=== PATIENT | female | born 1960 | race Caucasian/White ===

== ENCOUNTER 2016-12-21 18:01 | Emergency (ER) | payer SELFPAY ==
[~2016-12-21] VITALS: Ht 167.6 cm; Wt 87.0 kg
[~2016-12-21 18:01] MED LIST: METO25TA6 PO
[2016-12-21 18:02] VITALS: BP 141/93; PULSE 87; RESP 15; TEMP 98.1; O2SAT 99
[2016-12-21] MEDS ORDERED: LEVO50TA4 PO (18:16)
[2016-12-21] MEDS ORDERED: METO25TA3 PO (18:16)
[2016-12-21] MEDS ORDERED: DOXY100C PO (18:18)
--- NOTE | 2016-12-21 18:21 | PD ---
HPI Chief Complaint: Skin Problem Time Seen by Provider: 18:10 Travel History International Travel<30 days: No Contact w/Intl Traveler<30days: No Traveled to known affect area: No History of Present Illness HPI 56-year-old female presents for evaluation of pain and redness in the dorsal aspect of the left hand and wrist. She first noticed it yesterday morning. The pain is an aching pain that is constant and worse with palpation of the hand. She has a linear scratch on the dorsal surface of the left hand which she believes is from her cat. No fevers Or chills. No drainage. She denies any trauma to the hand. Last tetanus vaccination unknown. No other complaints. PFSH Past Medical History Diminished Hearing: No Hypertension: Yes Thyroid Disease: Yes (HYPO) Tetanus Vaccination: > 5 Years Influenza Vaccination: No ?: Not Past Surgical History Genitourinary Surgery: Yes (BLADDER MESH) Hysterectomy: Yes Joint Replacement: Yes (R KNEE MENISCUS REPAIR) Social History Alcohol Use: No Tobacco Use: No Substance Use: No Allergies-Medications (Allergen,Severity, Reaction): Coded Allergies: Penicillin (Verified Allergy, Intermediate, RASH, 12/21/16) Reported Meds & Prescriptions Reported Meds & Active Scripts Active Reported Levothyroxine (Levothyroxine Sodium) 50 Mcg Tab 50 Mcg PO DAILY Metoprolol Tartrate 25 Mg Tab 25 Mg PO HS Review of Systems General / Constitutional: No: Fever, Chills Skin: Positive Other (linear abrasion, pain, redness) Physical Exam Narrative GENERAL: Well-developed well-nourished female in no acute distress SKIN: Warm and dry. There is a superficial linear abrasion at the dorsal surface of left hand with some mild surrounding erythema. There is no proximal streaking or axillary lymphadenopathy. No induration or soft tissue swelling. CARDIOVASCULAR: Regular rate and rhythm. No murmur appreciated. RESPIRATORY: No accessory muscle use. Clear to auscultation. Breath sounds equal bilaterally. MUSCULOSKELETAL: Skin as noted above with no obvious bony deformity. The patient has full range of motion of the left hand and wrist. Data Data Last Documented VS Vital Signs Date Time Temp Pulse Resp B/P Pulse Ox O2 Delivery O2 Flow Rate FiO2 12/21/16 18:02 98.1 87 15 141/93 99 Orders Tetanus/Diphtheria Tox Adult (Tetanus/Di (12/21/16 18:30) Doxycycline (Vibramycin) (12/21/16 18:30) [facility] Medical Decision Making Medical Screen Exam Complete: Yes Emergency Medical Condition: Yes Medical Record Reviewed: Yes Differential Diagnosis Cellulitis, abscess, erysipelas, contusion Narrative Course Physical examination reveals mild cytolytic changes dorsal surface of the left hand along with a superficial linear abrasion likely from the patient Scratching her. Tetanus status updated. The patient is allergic to penicillin. She will be discharged with doxycycline which would cover for pasteurella as well as most staphylococcal strains. Discussed signs and symptoms of more returning to the emergency room. Diagnosis Primary Impression: Cellulitis of left hand Additional Instructions: Warm compresses several times a day 10-15 minutes at a time. Take Tylenol or Motrin for discomfort. Take antibiotics as prescribed. Return for any evidence of worsening infection such as increasing redness, red streaks up the arm, fevers. Med/Other Pt SpecificInfo: Prescription(s) given Scripts Doxycycline Hyclate 100 Mg Atn102 Mg PO BID #20 CAP Ref 0 Prov:Jagjit Bell MD 12/21/16 Disposition: 01 DISCHARGE HOME Condition: Stable Mendoza Champion Dec 21, 2016 18:21
[2016-12-21] MEDS ORDERED: TETANUS/DIPHTHERIA TOXOID ADULT 0.5 ML VIAL IM ONE (18:30)
[2016-12-21] MEDS ORDERED: DOXYCYCLINE HYCLATE 100 MG TAB PO ONE (18:30)
[2016-12-21] MEDS ORDERED: DOXYCYCLINE HYCLATE 100 MG CAP PO ONE (18:30)
== END 2016-12-21 18:30 | disposition home or self-care (01) ==
LOC: PHEFT 18:01
DX: L03.114 Cellulitis of left upper limb (principal); Z23 Encounter for immunization; I10 Essential (primary) hypertension; E07.9 Disorder of thyroid, unspecified; Z88.0 Allergy status to penicillin; Z79.899 Other long term (current) drug therapy
CPT/HCPCS: 90471; 90714

== ENCOUNTER 2018-08-04 12:42 | Observation (INO) ==
[2018-08-04] MEDS ORDERED: Sodium Chlor 0.9% Inj 500 ML IV.SIG SCH (13:00)
--- NOTE | 2018-08-04 13:14 | XR ---
EXAM DATE: 08/04/2018 1:10 PM EDT AGE/SEX: 58 years / Female INDICATIONS: . Cough, chest pressure. & heart palpations. CLINICAL DATA: This is the patient's initial encounter. Patient reports that signs and symptoms have been present for 1 month and indicates a pain score of 0/10. MEDICAL/SURGICAL HISTORY: Hypothyroidism. Tonsillectomy. COMPARISON: No prior exams available for comparison. FINDINGS: PA and lateral views of the chest demonstrate the lungs to be symmetrically aerated without evidence of mass, infiltrate or effusion. The cardiomediastinal contours are unremarkable. Osseous structures are intact. CONCLUSION: No acute cardiopulmonary disease. Electronically signed by: Zechariah Davis MD 08/04/2018 1:13 PM EDT
--- NOTE | 2018-08-04 13:15 | ED ---
HPI General Chief Complaint: Chest Pain Stated Complaint: COUGH/CHEST CONGESTION Time Seen by Provider: 08/04/18 12:52 Source: patient Mode of arrival: ambulatory Limitations: no limitations History of Present Illness MD complaint: Reports chest pain STEMI Alert: No Onset (ago): month(s) (1) Duration: intermittent Onset: during rest Pain location: Reports substernal Severity: mild Severity scale (1-10): 4 Quality: Reports tightness Pain radiation: Reports none Relieving factors: nothing Exacerbating factors: nothing Associated symptoms: Reports cough (HAS HAD NONPROD COUGH X 1 MONTH, ) Treatments prior to arrival chest pain: Reports none Related Data On Oral Contraceptives: No Home Medications Medication Instructions Recorded Confirmed No Known Home Medications 08/04/18 08/04/18 Allergies Allergy/AdvReac Type Severity Reaction Status Date / Time nitrofurantoin Allergy Intermediate Rash Verified 08/04/18 12:49 [From Macrobid] penicillin G Allergy Intermediate RASH Verified 08/04/18 12:46 phenazopyridine Allergy Intermediate Rash Verified 08/04/18 12:49 [From Pyridium] Review of Systems ROS: all other systems reviewed are negative [facility] Medical History Medical History Bladder prolapse (Acute) H/O: hysterectomy (Acute) Hypothyroid (Acute) Surgical History Surgical History H/O right knee surgery (Acute) History of tonsillectomy (Acute) Family History Family History Father Cardiovascular disease Social History Social History Substance History: No History of Abuse Second Hand Smoke Exposure: No Smoking Status: Never smoker How Often Do You Have a Drink Containing Alcohol: Monthly or less Recent Travel in [facility] within the Last 8 Weeks: No Recent Out of Country Travel within the Last 8 Weeks: No Immunization History Tetanus Immunization: Unsure Exam Narrative Exam Narrative: GENERAL: female in no acute distress SKIN: Warm and dry. HEAD: Atraumatic. Normocephalic. EYES: Pupils equal and round. No scleral icterus. No injection or drainage. ENT: No nasal bleeding or discharge. Mucous membranes pink and moist. NECK: Trachea midline. No JVD. CARDIOVASCULAR: Tachycardic rate but regular rhythm. no rubs or gallops RESPIRATORY: No accessory muscle use. Slight bibasilar rhonchi/crackles on auscultation . Excellent tidal volume bilaterally GASTROINTESTINAL: Abdomen soft, non-tender, nondistended. No rebound or guarding MUSCULOSKELETAL: Extremities without clubbing, cyanosis, or edema. No obvious deformities. NEUROLOGICAL: Awake and alert. No obvious cranial nerve deficits. Motor grossly within normal limits. Five out of 5 muscle strength in the arms and legs. Normal speech. PSYCHIATRIC: Appropriate mood and affect; insight and judgment normal. Course Initial Documented Vital Signs Temperature 98.2 F 08/04/18 12:46 Pulse Rate 112 H 08/04/18 12:46 Respiratory Rate 16 08/04/18 12:46 Blood Pressure 200/110 H 08/04/18 12:46 Pulse Oximetry 96 08/04/18 12:46 Last Documented Vital Signs Temperature 96.6 F L 08/05/18 08:00 Pulse Rate 81 08/05/18 08:00 Respiratory Rate 20 08/05/18 08:00 Blood Pressure 136/82 08/05/18 08:00 Pulse Oximetry 95 08/05/18 08:00 Clinical Decision Support HEART Score Questions History: Moderately suspicious EKG: Non-specific repolarization disturbance Age: 45-64 years Risk Factors: 1-2 Risk Factors (patient has NO PCP and therefore NO HISTORY) Initial Troponin: Normal Limit Heart Score HEART Score: 4 Medical Decision Making MDM Narrative Medical Screen Exam Complete: Yes Emergency Medical Condition: Yes Differential Diagnosis Differential Diagnosis: PULM EDEMA V PULM EMBOLUS V PNA V ATYPICAL MA Medical Records Medical records reviewed: Yes I reviewed the patient's medical records. Lab Data Result diagrams: 08/04/18 13:20 08/04/18 13:20 Lab Results 08/04/18 08/04/18 08/04/18 Range/Units 13:20 13:20 13:20 CBC w Diff Auto diff final WBC 7.5 (4.0-11.0) th/mm3 RBC 4.47 (4.00-5.30) mil/mm3 Hgb 13.9 (11.6-15.3) gm/dL Hct 40.9 (35.0-46.0) % MCV 91.5 (80.0-100.0) fL MCH 31.2 (27.0-34.0) pg MCHC 34.1 (32.0-36.0) % RDW 14.2 (11.6-17.2) % Plt Count 275 (150-450) th/mm3 MPV 9.9 (7.0-11.0) fL Neut % (Auto) 56.6 (16.0-70.0) % Lymph % (Auto) 24.7 (9.0-44.0) % [place] % (Auto) 7.7 (0.0-8.0) % Eos % (Auto) 9.4 H (0.0-4.0) % Baso % (Auto) 1.6 (0.0-2.0) % Neut # (Auto) 4.2 (1.8-7.7) th/mm3 Lymph # (Auto) 1.9 (1.0-4.8) th/mm3 [place] # (Auto) 0.6 (0.0-0.9) th/mm3 Eos # (Auto) 0.7 H (0.0-0.4) th/mm3 Baso # (Auto) 0.1 (0.0-0.2) th/mm3 WBC Differential . Differential Comment . D-Dimer Quant (PE/DVT) (0.00-0.50) mg/L FEU Sodium 141 (136-145) meq/L Potassium 3.3 L (3.5-5.1) meq/L Chloride 106 (98-107) meq/L Carbon Dioxide 26.8 (21.0-32.0) meq/L Anion Gap 8 (5-15) meq/L BUN 10 (7-18) mg/dL Creatinine 0.81 (0.50-1.00) mg/dL Estimated GFR 73 L (>89) mL/min Random Glucose 131 H (74-106) mg/dL Calcium 8.6 (8.5-10.1) mg/dL Total Bilirubin 0.4 (0.2-1.0) mg/dL AST 18 (15-37) U/L ALT 23 (10-53) U/L Alkaline Phosphatase 67 (45-117) U/L Total Creatine Kinase 68 (26-192) U/L Troponin I Less than 0.02 L (0.02-0.05) ng/mL B-Natriuretic Peptide (0-100) pg/mL Total Protein 7.9 (6.4-8.2) g/dL Albumin 3.8 (3.4-5.0) g/dL Triglycerides (42-150) mg/dL Cholesterol (120-200) mg/dL LDL Cholesterol, Calc (0-99) mg/dL HDL Cholesterol (40.0-60.0) mg/dL Cholesterol/HDL Ratio Ratio TSH 2.570 (0.358-3.740) uIU/mL 08/04/18 08/04/18 08/04/18 Range/Units 13:20 13:20 17:04 CBC w Diff WBC (4.0-11.0) th/mm3 RBC (4.00-5.30) mil/mm3 Hgb (11.6-15.3) gm/dL Hct (35.0-46.0) % MCV (80.0-100.0) fL MCH (27.0-34.0) pg MCHC (32.0-36.0) % RDW (11.6-17.2) % Plt Count (150-450) th/mm3 MPV (7.0-11.0) fL Neut % (Auto) (16.0-70.0) % Lymph % (Auto) (9.0-44.0) % [place] % (Auto) (0.0-8.0) % Eos % (Auto) (0.0-4.0) % Baso % (Auto) (0.0-2.0) % Neut # (Auto) (1.8-7.7) th/mm3 Lymph # (Auto) (1.0-4.8) th/mm3 [place] # (Auto) (0.0-0.9) th/mm3 Eos # (Auto) (0.0-0.4) th/mm3 Baso # (Auto) (0.0-0.2) th/mm3 WBC Differential Differential Comment D-Dimer Quant (PE/DVT) 0.48 (0.00-0.50) mg/L FEU Sodium (136-145) meq/L Potassium (3.5-5.1) meq/L Chloride (98-107) meq/L Carbon Dioxide (21.0-32.0) meq/L Anion Gap (5-15) meq/L BUN (7-18) mg/dL Creatinine (0.50-1.00) mg/dL Estimated GFR (>89) mL/min Random Glucose (74-106) mg/dL Calcium (8.5-10.1) mg/dL Total Bilirubin (0.2-1.0) mg/dL AST (15-37) U/L ALT (10-53) U/L Alkaline Phosphatase (45-117) U/L Total Creatine Kinase 55 (26-192) U/L Troponin I Less than 0.02 L (0.02-0.05) ng/mL B-Natriuretic Peptide 12 (0-100) pg/mL Total Protein (6.4-8.2) g/dL Albumin (3.4-5.0) g/dL Triglycerides (42-150) mg/dL Cholesterol (120-200) mg/dL LDL Cholesterol, Calc (0-99) mg/dL HDL Cholesterol (40.0-60.0) mg/dL Cholesterol/HDL Ratio Ratio TSH (0.358-3.740) uIU/mL 08/04/18 08/04/18 Range/Units 17:04 20:00 CBC w Diff WBC (4.0-11.0) th/mm3 RBC (4.00-5.30) mil/mm3 Hgb (11.6-15.3) gm/dL Hct (35.0-46.0) % MCV (80.0-100.0) fL MCH (27.0-34.0) pg MCHC (32.0-36.0) % RDW (11.6-17.2) % Plt Count (150-450) th/mm3 MPV (7.0-11.0) fL Neut % (Auto) (16.0-70.0) % Lymph % (Auto) (9.0-44.0) % [place] % (Auto) (0.0-8.0) % Eos % (Auto) (0.0-4.0) % Baso % (Auto) (0.0-2.0) % Neut # (Auto) (1.8-7.7) th/mm3 Lymph # (Auto) (1.0-4.8) th/mm3 [place] # (Auto) (0.0-0.9) th/mm3 Eos # (Auto) (0.0-0.4) th/mm3 Baso # (Auto) (0.0-0.2) th/mm3 WBC Differential Differential Comment D-Dimer Quant (PE/DVT) (0.00-0.50) mg/L FEU Sodium (136-145) meq/L Potassium (3.5-5.1) meq/L Chloride (98-107) meq/L Carbon Dioxide (21.0-32.0) meq/L Anion Gap (5-15) meq/L BUN (7-18) mg/dL Creatinine (0.50-1.00) mg/dL Estimated GFR (>89) mL/min Random Glucose (74-106) mg/dL Calcium (8.5-10.1) mg/dL Total Bilirubin (0.2-1.0) mg/dL AST (15-37) U/L ALT (10-53) U/L Alkaline Phosphatase (45-117) U/L Total Creatine Kinase 50 (26-192) U/L Troponin I Less than 0.02 L (0.02-0.05) ng/mL B-Natriuretic Peptide (0-100) pg/mL Total Protein (6.4-8.2) g/dL Albumin (3.4-5.0) g/dL Triglycerides 142 (42-150) mg/dL Cholesterol 236 H (120-200) mg/dL LDL Cholesterol, Calc 152 H (0-99) mg/dL HDL Cholesterol 55.3 (40.0-60.0) mg/dL Cholesterol/HDL Ratio 4.26 Ratio TSH 2.190 (0.358-3.740) uIU/mL Imaging Data Radiologist's impression: Chest X-Ray 08/04/18 12:53 CONCLUSION: No acute cardiopulmonary disease. ECG Data EKG Prior to Arrival: No Attestation: I personally reviewed and interpreted this ECG as follows: Prior ECG tracings: not available for review Interpretation: Normal sinus rhythm, 91 bpm, normal interval, minimal ST depression and T wave inversion on 2 3 aVF V4 through V6 without accompanying ST elevations on contralateral leads. Discharge Plan Discharge Disposition Patient Disposition: 30 Still Patient Discharge Condition Condition: Stable Discharge Details Diagnosis: Chest pain Physicians Team ED Provider: Logan Bautista Primary Care Provider: Primary Care Nan Moreno Attending Provider: Raúl De Leon Discharge Interventions Interventions: ED Discharge Assessment Last Done: 08/04/18 16:08 Status ED Status: Left Department Discharge Information Discharge Date/Time: 08/04/18 16:09
[2018-08-04] MEDS: Metoprolol Inj 5 MG/5 ML Vial IV.PUSH SCH ×3 (13:26→14:48)
[2018-08-04 13:34] LABS: Baso # (Auto) 0.1 th/mm3 (0.0-0.2); Baso % (Auto) 1.6 % (0.0-2.0); Eos # (Auto) 0.7 th/mm3 (0.0-0.4); Eos % (Auto) 9.4 % (0.0-4.0); Hematocrit 40.9 % (35.0-46.0); Hemoglobin 13.9 gm/dL (11.6-15.3); Lymph # (Auto) 1.9 th/mm3 (1.0-4.8); Lymph % (Auto) 24.7 % (9.0-44.0); Mean Corpuscular HGB Conc 34.1 % (32.0-36.0); Mean Corpuscular Hemoglobin 31.2 pg (27.0-34.0); Mean Corpuscular Volume 91.5 fL (80.0-100.0); Mean Platelet Volume 9.9 fL (7.0-11.0); Mono # (Auto) 0.6 th/mm3 (0.0-0.9); Mono % (Auto) 7.7 % (0.0-8.0); Neut # (Auto) 4.2 th/mm3 (1.8-7.7); Neut % (Auto) 56.6 % (16.0-70.0); Platelet Count 275 th/mm3 (150-450); Red Blood Count 4.47 mil/mm3 (4.00-5.30); Red Cell Distribution Width 14.2 % (11.6-17.2); White Blood Count 7.5 th/mm3 (4.0-11.0)
[2018-08-04 13:42] LABS: Chloride 106 meq/L (98-107); Potassium 3.3 meq/L (3.5-5.1); Sodium 141 meq/L (136-145)
[2018-08-04 13:45] LABS: Calcium 8.6 mg/dL (8.5-10.1)
[2018-08-04 13:46] LABS: Albumin 3.8 g/dL (3.4-5.0); Anion Gap 8 meq/L (5-15); Blood Urea Nitrogen 10 mg/dL (7-18); Carbon Dioxide 26.8 meq/L (21.0-32.0); Glucose,Random 131 mg/dL (74-106)
[2018-08-04 13:49] LABS: Alanine Aminotransferase 23 U/L (10-53); Aspartate Aminotransferase 18 U/L (15-37); Glomerular Filtration Rate 73 mL/min (>89)
[2018-08-04 13:50] LABS: Total Protein 7.9 g/dL (6.4-8.2)
[2018-08-04 13:52] LABS: Alkaline Phosphatase 67 U/L (45-117)
--- NOTE | 2018-08-04 15:31 | P.HP ---
History of Present Illness Primary Care Physician: No Primary Care Physician Chief Complaint: Chest pain History of Present Illness: This is a 58-year-old female patient with no known medical history who presented to the ED with complaints of chest pain and cough. Patient states that over the past month she has had an intermittent cough that goes from being productive to nonproductive. She states that she subsequently has had some chest pressure associated with her cough, she states the pressure is midsternal and radiates throughout the right and left side of her chest, is worse with coughing and deep breathing, does admit to associated shortness of breath with the pain. She denies any associated nausea, vomiting or sweating. She also admits to some heart palpitations, that intermittently come and go during the day, she states that it feels like she is skipping a beat. She denies ever having this type of sensation before. 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 She denies any recent fever, chills, headache, or dysuria. She does admit to a stress test in 2008, at that time she did have aspiration pneumonia secondary to tonsillectomy, stress test was negative at that time. 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 She also states that she has history of hypothyroidism, states she stopped taking her Synthroid months ago and has been doing herbal remedies. Patient does have a family history on her father's side of cardiovascular disease. She denies taking any home medications. Upon presentation chest pain has resolved. Chest x-ray is unremarkable. Initial troponins flat. EKG with no significant ST changes. - Diagnosis (1) Chest pain Review of Systems All other systems reviewed negative except as stated in HPI PMFSH - History History Provided By: Patient - Medical History Medical History: Medical History (Last Updated 08/04/18 @ 16:46 by Mariely Sutherland) Bladder prolapse H/O: hysterectomy Hypothyroid - Surgical History Surgical History: Surgical History (Last Updated 08/04/18 @ 16:46 by Mariely Sutherland) H/O right knee surgery History of tonsillectomy - Family History Family History: Family History (Last Updated 08/04/18 @ 16:46 by Mariely Sutherland) Father Cardiovascular disease - Social History I have reviewed the patient's Social History: Yes - Tobacco History Second Hand Smoke Exposure: No Smoking Status: Never smoker - Alcohol History How Often Do You Have a Drink Containing Alcohol: Never - Substance Use History Substance History: No History of Abuse - Travel History Recent Travel in the [place] Within the Last 8 Weeks: No Recent Travel Out of the Country Within the Last 8 Weeks: No - Immunization History Tetanus Immunization: Unsure Medications and Allergies Active Medications: Active Medications Sodium Chloride (Ns Inj) 500 mls @ 0 mls/hr IV.SIG BOLUS EMILY Last Infusion: 08/04/18 14:25 Dose: Infused Nitroglycerin (Nitrostat Sl) 0.4 mg SL Q5M PRN PRN Reason: CHEST PAIN Ondansetron HCl (Zofran Inj) 4 mg IV.PUSH Q6H PRN PRN Reason: NAUSEA Sodium Chloride (Ns Flush) 2 ml IV.FLUSH UNSCH PRN PRN Reason: FLUSH AFTER USING IV ACCESS Last Admin: 08/04/18 13:26 Dose: 2 ml Sodium Chloride (Ns Flush) 2 ml IV.FLUSH BID EMILY Sodium Chloride (Ns Flush) 2 ml IV.FLUSH PRN PRN PRN Reason: FLUSH AFTER USING IV ACCESS Allergies Allergy/AdvReac Type Severity Reaction Status Date / Time nitrofurantoin Allergy Intermediate Rash Verified 08/04/18 12:49 [From Macrobid] penicillin G Allergy Intermediate RASH Verified 08/04/18 12:46 phenazopyridine Allergy Intermediate Rash Verified 08/04/18 12:49 [From Pyridium] Home Medications Medication Instructions Recorded Confirmed Type No Known Home Medications 08/04/18 08/04/18 History Exam Vital signs: Vital Signs 08/04/18 12:46 08/04/18 12:48 08/04/18 13:04 Temperature 98.2 F Pulse Rate 112 H 115 H 103 H Respiratory Rate 16 18 16 Blood Pressure 200/110 H 170/104 H 161/89 H Pulse Oximetry 96 95 95 08/04/18 13:35 08/04/18 14:08 Temperature Pulse Rate 89 77 Respiratory Rate 18 16 Blood Pressure 164/89 H 132/79 Pulse Oximetry 95 95 Intake & Output 08/03/18 08/04/18 08/04/18 18:59 06:59 18:59 Intake Total 500 / 500 Balance 500 / 500 Weight 80.3 kg Intake: IV 500 / 500 NS Inj 500 ML @ Wide Open IV. 500 / 500 SIG BOLUS EMILY Rx#:[id number] Narrative: GENERAL: Well-developed, well-nourished patient in NAD. SKIN: Warm and dry. No rash. HEAD: Normocephalic. Atraumatic. EYES: Pupils equal and round. No scleral icterus. No injection or drainage. ENT: No nasal bleeding or discharge. Mucous membranes pink and moist. NECK: Supple. Trachea midline. CARDIOVASCULAR: Regular rate and rhythm. S1, S2 noted. No murmur appreciated. No reproducible chest pain to palpation. RESPIRATORY: No accessory muscle use. Clear to auscultation. Breath sounds equal bilaterally. GASTROINTESTINAL: Abdomen soft, non-tender, nondistended. Normoactive bowel sounds x4. MUSCULOSKELETAL: No obvious deformities. Extremities without clubbing, cyanosis , or edema. NEUROLOGICAL: Awake and alert. No obvious cranial nerve deficits. Motor grossly within normal limits. 5/5 muscle strength in bilateral upper and lower extremities. Normal speech. PSYCHIATRIC: Appropriate mood and affect; insight and judgment normal. Results - Labs CBC & Chem 7: 08/04/18 13:20 08/04/18 13:20 Labs: Laboratory Results - last 24 hr 08/04/18 08/04/18 08/04/18 13:20 13:20 13:20 CBC w Diff Auto diff final WBC 7.5 RBC 4.47 Hgb 13.9 Hct 40.9 MCV 91.5 MCH 31.2 MCHC 34.1 RDW 14.2 Plt Count 275 MPV 9.9 Neut % (Auto) 56.6 Lymph % (Auto) 24.7 [place] % (Auto) 7.7 Eos % (Auto) 9.4 H Baso % (Auto) 1.6 Neut # (Auto) 4.2 Lymph # (Auto) 1.9 [place] # (Auto) 0.6 Eos # (Auto) 0.7 H Baso # (Auto) 0.1 WBC Differential . Differential Comment . D-Dimer Quant (PE/DVT) Sodium 141 Potassium 3.3 L Chloride 106 Carbon Dioxide 26.8 Anion Gap 8 BUN 10 Creatinine 0.81 Estimated GFR 73 L Random Glucose 131 H Calcium 8.6 Total Bilirubin 0.4 AST 18 ALT 23 Alkaline Phosphatase 67 Total Creatine Kinase 68 Troponin I Less than 0.02 L B-Natriuretic Peptide Total Protein 7.9 Albumin 3.8 TSH 2.570 08/04/18 08/04/18 13:20 13:20 CBC w Diff WBC RBC Hgb Hct MCV MCH MCHC RDW Plt Count MPV Neut % (Auto) Lymph % (Auto) [place] % (Auto) Eos % (Auto) Baso % (Auto) Neut # (Auto) Lymph # (Auto) [place] # (Auto) Eos # (Auto) Baso # (Auto) WBC Differential Differential Comment D-Dimer Quant (PE/DVT) 0.48 Sodium Potassium Chloride Carbon Dioxide Anion Gap BUN Creatinine Estimated GFR Random Glucose Calcium Total Bilirubin AST ALT Alkaline Phosphatase Total Creatine Kinase Troponin I B-Natriuretic Peptide 12 Total Protein Albumin TSH - Imaging Impressions Chest X-Ray 08/04/18 12:53 CONCLUSION: No acute cardiopulmonary disease. Caprini VTE Risk Assessment Caprini VTE Risk Assessment: No/Low Risk (score <= 1) Caprini Risk Assessment Model: Point Value = 1 Point Value = 2 Point Value = 3 Point Value = 5 Age 41-60 Minor surgery BMI > 25 kg/m2 Swollen legs Varicose veins or History of unexplained or recurrent spontaneous Oral contraceptives or hormone replacement Sepsis (< 1 month) Serious lung disease, including pneumonia (< 1 month) Abnormal pulmonary function Acute myocardial infarction Congestive heart failure (< 1 month) History of inflammatory bowel disease Medical patient at bed rest Age 61-74 Arthroscopic surgery Major open surgery (> 45 min) Laparoscopic surgery (> 45 min) Malignancy Confined to bed (> 72 hours) Immobilizing plaster cast Central venous access Age >= 75 History of VTE Family history of VTE Factor V Leiden Prothrombin [id number] Lupus anticoagulant Anticardiolipin antibodies Elevated serum homocysteine Heparin-induced thrombocytopenia Other congenital or acquired thrombophilia Stroke (< 1 month) Elective arthroplasty Hip, pelvis, or leg fracture Acute spinal cord injury (< 1 month) Prophylaxis Regimen: Total Risk Factor Score Risk Level Prophylaxis Regimen 0-1 Low Early ambulation 2 Moderate Order ONE of the following: *Sequential Compression Device (SCD) *Heparin 5000 units SQ BID 3-4 Higher Order ONE of the following medications: *Heparin 5000 units SQ TID *Enoxaparin/Lovenox 40 mg SQ daily (WT < 150 kg, CrCl > 30 mL/min) *Enoxaparin/Lovenox 30 mg SQ daily (WT < 150 kg, CrCl > 10-29 mL/min) *Enoxaparin/Lovenox 30 mg SQ BID (WT < 150 kg, CrCl > 30 mL/min) AND/OR *Sequential Compression Device (SCD) 5 or more Highest Order ONE of the following medications: *Heparin 5000 units SQ TID (Preferred with Epidurals) *Enoxaparin/Lovenox 40 mg SQ daily (WT < 150 kg, CrCl > 30 mL/min) *Enoxaparin/Lovenox 30 mg SQ daily (WT < 150 kg, CrCl > 10-29 mL/min) *Enoxaparin/Lovenox 30 mg SQ BID (WT < 150 kg, CrCl > 30 mL/min) AND *Sequential Compression Device (SCD) Assessment and Plan - Assessment (1) Chest pain Code(s): R07.9 - Chest pain, unspecified Status: Acute - Plan This is a 58-year-old female patient with: Chest pain, atypical rule out ACS -Patient has been admitted to the chest pain center for observation. Serial EKGs and serial troponins have been ordered for ruling out ACS purposes. Initial troponin flat, continue to monitor trend. -EKG reviewed showing sinus rhythm with controlled heart rate, no ST changes to indicate any ischemia. -Continue on cardiac telemetry, monitor for any arrhythmias. -CBC and BMP reviewed, essentially unremarkable. Will add a lipid panel. Follow. -CXR reviewed and not showing any acute cardiopulmonary disease. -Patient's risk factors for CAD include family history on her father's side of cardiovascular disease. Son also had an [place] at the age of 2929 years old. -If ACS ruled out with cardiac enzymes and EKGs patient will undergo a cardiac stress test to further rule out any ischemia. -Patient is stable at this time and agreeable to the plan. Hypothyroidism, chronic: Will check a TSH. Patient states she stopped taking her Synthroid months ago due to not having a primary care physician. She states she has been trying [id number] remedies. With her complaints of palpitations her symptoms may be related to her thyroid. Continue to monitor. DVT Prophylaxis: SCDs. Ambulation.
[2018-08-04 17:38] LABS: Creatine Kinase 55 U/L (26-192)
[2018-08-04 17:46] LABS: Thyroid Stimulating Hormone 2.19 uIU/mL (0.358-3.740)
[2018-08-04 20:24] LABS: Chol/HDL Ratio 4.26 Ratio; HDL Cholesterol 55.3 mg/dL (40.0-60.0)
[2018-08-04 20:50] LABS: Creatine Kinase 50 U/L (26-192)
--- NOTE | 2018-08-05 09:28 | P.PNIM ---
Subjective Interval history: Follow-up chest pain. Patient seen and examined sitting on side of bed comfortably no apparent distress. No acute events overnight. No continued chest pain. Patient will undergo a cardiac stress test this morning to further rule out any ischemia. Vital signs stable. Afebrile. Physical Exam Vital signs: Vital Signs 08/04/18 12:46 08/04/18 12:48 08/04/18 13:04 Temperature 98.2 F Pulse Rate 112 H 115 H 103 H Respiratory Rate 16 18 16 Blood Pressure 200/110 H 170/104 H 161/89 H Pulse Oximetry 96 95 95 08/04/18 13:35 08/04/18 14:08 08/04/18 16:00 Temperature 97.8 F Pulse Rate 89 77 72 Respiratory Rate 18 16 20 Blood Pressure 164/89 H 132/79 131/91 H Pulse Oximetry 95 95 95 08/04/18 20:00 08/05/18 00:00 08/05/18 04:00 Temperature 96.7 F L 95.9 F L 96.7 F L Pulse Rate 72 60 70 Respiratory Rate 16 16 16 Blood Pressure 111/67 100/68 101/66 Pulse Oximetry 96 96 96 Intake & Output 08/04/18 08/05/18 08/05/18 18:59 06:59 18:59 Intake Total 740 / 740 680 / 680 Output Total 200 / 200 Balance 540 / 540 680 / 680 Weight 80.3 kg 80.3 kg Intake: IV 500 / 500 NS Inj 500 ML @ Wide Open IV. 500 / 500 SIG BOLUS EMILY Rx#:[id number] Oral 240 / 240 680 / 680 Output: Urine 200 / 200 Other: # Voids 2 Narrative: GENERAL: Well-developed, well-nourished patient in [facility]. SKIN: Warm and dry. No rash. HEAD: Normocephalic. Atraumatic. EYES: Pupils equal and round. No scleral icterus. No injection or drainage. ENT: No nasal bleeding or discharge. Mucous membranes pink and moist. NECK: Supple. Trachea midline. CARDIOVASCULAR: Regular rate and rhythm. S1, S2 noted. No murmur appreciated. No reproducible chest pain to palpation. RESPIRATORY: No accessory muscle use. Clear to auscultation. Breath sounds equal bilaterally. GASTROINTESTINAL: Abdomen soft, non-tender, nondistended. Normoactive bowel sounds x4. MUSCULOSKELETAL: No obvious deformities. Extremities without clubbing, cyanosis , or edema. NEUROLOGICAL: Awake and alert. No obvious cranial nerve deficits. Motor grossly within normal limits. 5/5 muscle strength in bilateral upper and lower extremities. Normal speech. PSYCHIATRIC: Appropriate mood and affect; insight and judgment normal. Results - Labs CBC & Chem 7: 08/04/18 13:20 08/04/18 13:20 Laboratory Results - last 24 hr 08/04/18 08/04/18 08/04/18 13:20 13:20 13:20 CBC w Diff Auto diff final WBC 7.5 RBC 4.47 Hgb 13.9 Hct 40.9 MCV 91.5 MCH 31.2 MCHC 34.1 RDW 14.2 Plt Count 275 MPV 9.9 Neut % (Auto) 56.6 Lymph % (Auto) 24.7 Tompkins % (Auto) 7.7 Eos % (Auto) 9.4 H Baso % (Auto) 1.6 Neut # (Auto) 4.2 Lymph # (Auto) 1.9 Tompkins # (Auto) 0.6 Eos # (Auto) 0.7 H Baso # (Auto) 0.1 WBC Differential . Differential Comment . D-Dimer Quant (PE/DVT) Sodium 141 Potassium 3.3 L Chloride 106 Carbon Dioxide 26.8 Anion Gap 8 BUN 10 Creatinine 0.81 Estimated GFR 73 L Random Glucose 131 H Calcium 8.6 Total Bilirubin 0.4 AST 18 ALT 23 Alkaline Phosphatase 67 Total Creatine Kinase 68 Troponin I Less than 0.02 L B-Natriuretic Peptide Total Protein 7.9 Albumin 3.8 Triglycerides Cholesterol LDL Cholesterol, Calc HDL Cholesterol Cholesterol/HDL Ratio TSH 2.570 08/04/18 08/04/18 08/04/18 13:20 13:20 17:04 CBC w Diff WBC RBC Hgb Hct MCV MCH MCHC RDW Plt Count MPV Neut % (Auto) Lymph % (Auto) Tompkins % (Auto) Eos % (Auto) Baso % (Auto) Neut # (Auto) Lymph # (Auto) Tompkins # (Auto) Eos # (Auto) Baso # (Auto) WBC Differential Differential Comment D-Dimer Quant (PE/DVT) 0.48 Sodium Potassium Chloride Carbon Dioxide Anion Gap BUN Creatinine Estimated GFR Random Glucose Calcium Total Bilirubin AST ALT Alkaline Phosphatase Total Creatine Kinase 55 Troponin I Less than 0.02 L B-Natriuretic Peptide 12 Total Protein Albumin Triglycerides Cholesterol LDL Cholesterol, Calc HDL Cholesterol Cholesterol/HDL Ratio TSH 08/04/18 08/04/18 17:04 20:00 CBC w Diff WBC RBC Hgb Hct MCV MCH MCHC RDW Plt Count MPV Neut % (Auto) Lymph % (Auto) Tompkins % (Auto) Eos % (Auto) Baso % (Auto) Neut # (Auto) Lymph # (Auto) Tompkins # (Auto) Eos # (Auto) Baso # (Auto) WBC Differential Differential Comment D-Dimer Quant (PE/DVT) Sodium Potassium Chloride Carbon Dioxide Anion Gap BUN Creatinine Estimated GFR Random Glucose Calcium Total Bilirubin AST ALT Alkaline Phosphatase Total Creatine Kinase 50 Troponin I Less than 0.02 L B-Natriuretic Peptide Total Protein Albumin Triglycerides 142 Cholesterol 236 H LDL Cholesterol, Calc 152 H HDL Cholesterol 55.3 Cholesterol/HDL Ratio 4.26 TSH 2.190 - Imaging Impressions Chest X-Ray 08/04/18 12:53 CONCLUSION: No acute cardiopulmonary disease. Assessment and Plan - Assessment (1) Chest pain Code(s): R07.9 - Chest pain, unspecified Status: Acute - Plan This is a 58-year-old female patient with: Chest pain, atypical rule out ACS -Patient has been admitted to the chest pain center for observation. Serial EKGs and serial troponins have been ordered for ruling out ACS purposes. Troponin trend flat. -EKG reviewed showing sinus rhythm with controlled heart rate, no ST changes to indicate any ischemia. -Continue on cardiac telemetry, monitor for any arrhythmias. No arrhythmias overnight. -CBC and BMP reviewed, essentially unremarkable. Elevated lipids. Will start statin. -CXR reviewed and not showing any acute cardiopulmonary disease. -Patient's risk factors for CAD include family history on her father's side of cardiovascular disease. Son also had an IL at the age of 2929 years old. -ACS ruled out, patient will undergo a cardiac stress test this morning to further rule out any ischemia. -Patient is stable at this time and agreeable to the plan. Hypothyroidism, chronic: TSH normal. Patient states she stopped taking her Synthroid months ago due to not having a primary care physician. She states she has been trying [id number] remedies. Continue to monitor. DVT Prophylaxis: SCDs. Ambulation. Discharge Planning: Await cardiac stress test today. (1) Chest pain Qualifiers: Chest pain type: unspecified Qualified Code(s): R07.9 - Chest pain, unspecified
[2018-08-05] MEDS ORDERED: Regadenoson Inj 0.4 MG/5 ML Syringe IV.PUSH ONE (12:01)
--- NOTE | 2018-08-05 13:29 | NM ---
EXAM DATE: 08/05/2018 1:25 PM EDT AGE/SEX: 58 years / Female INDICATIONS:Angina. . Chest pain. CLINICAL DATA: This is the patient's initial encounter. Patient reports that signs and symptoms have been present for 1 day and indicates a pain score of 1/10. MEDICAL/SURGICAL HISTORY: Hypothyroidism. Hysterectomy. COMPARISON: No prior exams available for comparison. DOSE: 8.1 mCi Tc 99m Myoview at rest 25.3 mCi [id number] at stress 0.4 mg Lexiscan STRESS SYMPTOMS: Short of breath and neck tightness. EJECTION FRACTION: 53 % TECHNIQUE: The patient underwent pharmacologic stress with infusion of prescribed dose. Continuous ECG tracing was monitored during stress. Gated SPECT imaging was performed after stress and conventi onal SPECT imaging was performed at rest. The examination was performed on a SPECT/CT scanner, both attenuation and non-corrected datasets were reviewed. FINDINGS: Distribution: The maximum perfused segment at stress is in the anterior lateral wall. Perfusion Study: The pattern of perfusion at stress is within normal limits. There is a summed st ress score of 0. Gated Study: There are intact wall motion and wall thickening without hypokinetic or dyskinetic segm ents. The ejection fraction is calculated at 53%. RISK CATEGORY: Low (<1% Annual Motality Rate) CONCLUSION: 1. Normal wall motion and calculated ejection fraction. 2. No evidence of ischemia or infarction. Electronically signed by: Erick Arcos MD 08/05/2018 1:28 PM EDT
--- NOTE | 2018-08-05 13:34 | ECG ---
Date Performed: 08/04/2018 Time Performed: 19:56:26 PTAGE: 58 years EKG: Sinus rhythm NORMAL ECG PREVIOUS TRACING : 08/04/2018 17.00 DOCTOR: Keagan Harris Interpretating Date/Time 08/05/2018 13:32:19
--- NOTE | 2018-08-06 13:47 | TR ---
Date Performed: 08/05/2018 Time Performed: 12:38:10 DOCTOR: Henry Ortiz DRUG LIST: CLINICAL HISTORY: REASON FOR TEST: REASON FOR ENDING: OBSERVATION: CONCLUSION: COMMENTS: Lexiscan stress test was performed under standard four minute protocol. Radionuclide was injected one minute prior to ending the test. No electrocardiographic abormalities were present t o suggest ischemia. Nuclear imaging and interpretation are pending.
--- NOTE | 2018-08-06 13:56 | ECG ---
Date Performed: 08/04/2018 Time Performed: 17:00:20 PTAGE: 58 years EKG: Sinus rhythm NORMAL ECG PREVIOUS TRACING : 08/04/2018 12.54 Compared to previous tracing,T wave changes have improved. DOCTOR: Henry Ortiz Interpretating Date/Time 08/06/2018 13:54:39
--- NOTE | 2018-08-06 13:59 | ECG ---
Date Performed: 08/04/2018 Time Performed: 12:54:50 PTAGE: 58 years EKG: Sinus rhythm NONSPECIFIC ST & T-WAVE ABNORMALITY BORDERLINE ECG PREVIOUS TRACING : 09/04/2013 23.23 Compared to previous tracing, Twave changes are new. DOCTOR: Henry Ortiz Interpretating Date/Time 08/06/2018 13:56:48
== END 2018-08-05 16:05 | disposition home or self-care (01) ==
LOC: PHEDA 12:42 → PHED 12:42 → PH3 16:06
PROVIDERS: ADMIT Internal Medicine; ATTEND Internal Medicine